=== PATIENT | female | born 1985 | race African-American/Black ===

== ENCOUNTER 2017-03-15 11:51 | Emergency (ER) | payer MEDICAID ==
[2017-03-15] MEDS ORDERED: IBUPROFEN 800 MG TABLET PO ONE (12:52)
[2017-03-15] MEDS ORDERED: PENICILLIN V POTASSIUM 500 MG TABLET PO ONE (12:52)
--- NOTE | 2017-03-15 12:58 | ER Document Report ---
ED ENT - General Chief Complaint: Sore Throat Stated Complaint: SORE THROAT Time Seen by Provider: 03/15/17 12:24 Mode of Arrival: Ambulatory Information source: Patient Notes: 11-year-old female presents to ED for sore throat, jaw pain, and face pain for 2 days TRAVEL OUTSIDE OF THE [place] IN LAST 30 DAYS: No - HPI Onset: Other - 2 days Onset/Duration: Gradual Quality of pain: Sharp, Stabbing Severity: Severe Pain Level: 5 Context: Recent Illness Location of pain: Throat, Tooth Associated symptoms: Dental pain, Dental caries, Runny nose, Sinus pain, Sore throat Similar symptoms previously: Yes Recently seen / treated by doctor: No - Related Data Allergies/Adverse Reactions: No Known Allergies Allergy (Verified 03/15/17 12:00) Past Medical History - General Information source: Patient - Social History Smoking Status: Current Every Day Smoker Cigarette use (# per day): Yes - 1-2 ppd Chew tobacco use (# tins/day): No Smoking Education Provided: Yes - less than 2 min Frequency of alcohol use: None Drug Abuse: None Occupation: no Lives with: Alone Family History: Arthritis, CAD, CVA, DM, Hyperlipidemia, Hypertension, Malignancy, Thyroid Disfunction - Past Medical History Cardiac Medical History: Reports: None Pulmonary Medical History: Reports: None EENT Medical History: Reports: None Neurological Medical History: Reports: None Endocrine Medical History: Reports: None Renal/ Medical History: Reports: None Malignancy Medical History: Reports: None GI Medical History: Reports: Hx Hiatal Hernia Musculoskeltal Medical History: Reports None Skin Medical History: Reports None Psychiatric Medical History: Reports: None Traumatic Medical History: Reports: None Infectious Medical History: Reports: None Past Surgical History: Reports: Hx Section, Hx Dilation and Curettage, Hx Genitourinary Surgery - wedge bx - Immunizations Immunizations up to date: Yes Hx Diphtheria, Pertussis, Tetanus Vaccination: Yes Review of Systems - Review of Systems Constitutional: No symptoms reported EENT: No symptoms reported Cardiovascular: No symptoms reported Respiratory: No symptoms reported Gastrointestinal: No symptoms reported Genitourinary: No symptoms reported Female Genitourinary: No symptoms reported Musculoskeletal: No symptoms reported Skin: No symptoms reported Hematologic/Lymphatic: No symptoms reported Neurological/Psychological: No symptoms reported -: Yes All other systems reviewed and negative Physical Exam - Vital signs Vitals: Temp Pulse Resp BP Pulse Ox 98.7 F 90 20 110/73 98 03/15/17 11:58 03/15/17 11:58 03/15/17 11:58 03/15/17 11:58 03/15/17 11:58 Interpretation: Normal - General General appearance: Appears well, Alert - HEENT Head: Normocephalic, Atraumatic Eyes: Normal Pupils: PERRL Ears: Normal External canal: Normal Tympanic membrane: Normal Sinus: Normal Nasal: Purulent discharge, Swelling Mucous membranes: Normal Teeth diagram: 1 - multiple cavities with gingivitis Pharynx: Erythema, Post nasal drainage. No: Exudate, Peritonsillar abscess, Retropharyngeal abscess, Tonsillar hypertrophy, Uvular edema, Potential airway comprom. - Respiratory Respiratory status: No respiratory distress Chest status: Nontender Breath sounds: Normal Chest palpation: Normal - Cardiovascular Rhythm: Regular Heart sounds: Normal auscultation Murmur: No - Abdominal Inspection: Normal Distension: No distension Bowel sounds: Normal Tenderness: Nontender Organomegaly: No organomegaly - Back Back: Normal, Nontender - Extremities General upper extremity: Normal inspection, Nontender, Normal color, Normal ROM , Normal temperature General lower extremity: Normal inspection, Nontender, Normal color, Normal ROM , Normal temperature, Normal weight bearing. No: Indira's sign - Neurological Neuro grossly intact: Yes Cognition: Normal Orientation: AAOx4 Roel Coma Scale Eye Opening: Spontaneous Roel Coma Scale Verbal: Oriented Landenberg Coma Scale Motor: Obeys Commands Landenberg Coma Scale Total: 15 Speech: Normal Motor strength normal: LUE, RUE, LLE, RLE Sensory: Normal - Psychological Associated symptoms: Normal affect, Normal mood - Skin Skin Temperature: Warm Skin Moisture: Dry Skin Color: Normal Course - Vital Signs Vital signs: Temp Pulse Resp BP Pulse Ox 98.7 F 79 16 114/90 H 100 03/15/17 11:58 03/15/17 14:26 03/15/17 14:26 03/15/17 14:26 03/15/17 14:26 Discharge - Discharge Clinical Impression: Pain due to dental caries URI (upper respiratory infection) Qualifiers: URI type: unspecified URI Qualified Code(s): J06.9 - Acute upper respiratory infection, unspecified Condition: Stable Disposition: HOME, SELF-CARE Instructions: Use of [id number] Ibuprofen ([facility]) Additional Instructions: UPPER RESPIRATORY ILLNESS: You have a viral infection of the respiratory passages -- a "cold." This common infection causes nasal congestion, drainage, and often sore throat and cough. It is highly contagious. The disease usually lasts about 10 to 14 days. There is no "cure" for the viral infection -- it must run its course. If there is a complication, such as bacterial infection in the nose, sinuses, middle ear, or bronchial tubes, antibiotics may be required. The antibiotics won't affect the virus. Drink plenty of fluids. A humidifier may help. An expectorant medication or decongestant may make you more comfortable. Use acetaminophen or ibuprofen for fever or aches. See the doctor if fever persists over two days, if there is any significant worsening of your symptoms, or if you simply fail to improve as expected. SORE THROAT: Sore throats may be caused by viruses, bacteria, or fungi. Most are due to a virus, and must get better on their own. Bacterial sore throats, particularly those due to "strep," need treatment with antibiotics. If an antibiotic is prescribed, be sure to take the medication for a full 10 days. Failure to take the antibiotic can result in complications such as rheumatic fever. Sometimes, an injection of antibiotics is given instead of pills or liquid. This single "shot" is equal in effectiveness to the oral medication. To relieve symptoms, take acetaminophen for pain. Sip clear liquids frequently, or eat popsicles or ice chips. Anesthetic sprays or lozenges may help. Make sure the air in the room is not too dry. Avoid using decongestants or antihistamines. Call the doctor if there is no improvement in two days, or if you have difficulty breathing, increasing throat pain, high fever, rash, or frequent vomiting. TOOTHACHE: Your pain is due to dental decay. The tooth must be repaired in order for you to feel better. You will, therefore, be referred to a dentist. We do not have dentists on the staff at [facility]. Severe swelling or drainage around a tooth usually means a dental abscess. This also requires evaluation and treatment by the dentist, but antibiotics may be prescribed while awaiting dental treatment. You should be rechecked immediately if you develop major swelling of the face, increasing pain, a lump in the jaw or gums, headache, difficulty swallowing, or fever. PENICILLIN V K: You have been given a prescription for Penicillin VK. Your physician has determined that this is the best antibiotic for your condition. Pen VK can be taken with meals, however more of the antibiotic gets into the bloodstream if it's taken on an empty stomach. Penicillin usually has no side effects. However, allergy to penicillins is common. If you have had an allergic reaction to any drug of the penicillin family, you should never take any other penicillin. Notify your doctor at once if you develop hives, itching, swelling, faintness, or shortness of breath. I have given you a syringe of viscous lidocaine to use for your dental pain. You can put about 1 cc of viscous lidocaine on your tooth every 4 hours for the pain. This is lidocaine it will not your tongue and your throat please be careful eating or drinking after using this medication. FOLLOW-UP CARE: You have been referred for follow-up care to the dentists listed below. Call the dentists office for an appointment as you were instructed or within the next two days. If you experience worsening or a significant change in your symptoms, notify the physician immediately or return to the Emergency Department at any time for re-evaluation. [facility] [address], [place] Wednesday mornings, by appointment [facility] [address] [place] [address] [facility] [address] [facility]. [facility] [address] [facility]. [facility] [address] [facility].. [email or web address] [facility] [address] [place] [address] Wednesday- 8:00am to 5:00 pm Will see patients from other [facility]. Charges based on income and family size and accepts Medicare, Medicaid, and Insurances Will pull molars [facility], [facility]. [address] Hours of Operation 8:00 am - 4:30 pm weekdays The following dental offices accept Medicaid: [facility] Dr. Chong Dr. Truong Dr. Luis Dr. Medina Del Morales, Alicia, and Ethel oral surgery Dr. Jiménez ([place]) Dr. Gonzales ([place]) [facility] Drs. Selby ([place]) Dr. Melendez ([place]) [facility] Dr. Rowe ([place]) Drs. Guzmán and ([place]) Medicaid Care Line Prescriptions: Ibuprofen 600 mg PO Q8HP PRN #20 tablet PRN Reason: Penicillin V Potassium [Penicillin Vk 500 mg Tablet] 500 mg PO BID #20 tablet
[2017-03-15] MEDS ORDERED: LIDOCAINE 2% VISCOUS SOLN 20 ML UDCUP PO ONE (14:02)
[2017-03-15 14:28] VITALS: BP 114/90
== END 2017-03-15 14:28 | disposition home or self-care (01) ==
LOC: ER 11:51
DX: J06.9 Acute upper respiratory infection, unspecified (principal); K08.89 Other specified disorders of teeth and supporting structures; J02.9 Acute pharyngitis, unspecified; R68.84 Jaw pain; R51 Headache; F17.210 Nicotine dependence, cigarettes, uncomplicated
CPT/HCPCS: 99283; 87070; 87880; J3490 ×3

== ENCOUNTER 2018-07-13 09:06 | Emergency (ER) | payer SELFPAY ==
[2018-07-13] MEDS ORDERED: ONDANSETRON 4 MG TAB.RAPDIS PO ONE (09:50)
--- NOTE | 2018-07-13 09:51 | ER Document Report ---
ED Medical Screen (RME) - General Chief Complaint: Abdominal Pain Stated Complaint: SWOLLEN GUMS Time Seen by Provider: 07/13/18 09:45 Mode of Arrival: Ambulatory Information source: Patient Notes: Patient presents complaining of dental pain, sore throat as well as abdominal pain. Patient states she has had lower abdominal pain for the past 2 weeks with nausea and vomiting diarrhea. Patient states she is vomited once and had diarrhea once today. Patient does complain of headache and dysuria as well. Patient denies any concerns about . I have greeted and performed a rapid initial assessment of this patient. A comprehensive ED assessment and evaluation of the patient, analysis of test results and completion of the medical decision making process will be conducted by additional ED providers. TRAVEL OUTSIDE OF THE [place] IN LAST 30 DAYS: No - Related Data Allergies/Adverse Reactions: ibuprofen Allergy (Verified 07/13/18 09:07) Past Medical History Renal/ Medical History: Denies: Hx Peritoneal Dialysis GI Medical History: Reports: Hx Hiatal Hernia. Denies: Hx Gastroesophageal Reflux Disease, Hx Ulcer Past Surgical History: Reports: Hx Section, Hx Dilation and Curettage, Hx Genitourinary Surgery - wedge bx - Immunizations Immunizations up to date: Yes Hx Diphtheria, Pertussis, Tetanus Vaccination: Yes Physical Exam - Vital signs Vitals: Temp Pulse Resp BP Pulse Ox 98.5 F 85 18 132/88 H 100 07/13/18 09:10 07/13/18 09:10 07/13/18 09:10 07/13/18 09:10 07/13/18 09:10 - Abdominal Tenderness: Tender - Lower pelvic tenderness Course - Vital Signs Vital signs: Temp Pulse Resp BP Pulse Ox 98.5 F 85 18 132/88 H 100 07/13/18 09:10 07/13/18 09:10 07/13/18 09:10 07/13/18 09:10 07/13/18 09:10
[2018-07-13 11:01] LABS: ABSOLUTE BASOPHILS # (AUTO) 0.1 10^3/uL (0.0-0.2); ABSOLUTE EOSINOPHILS # (AUTO) 0.1 10^3/uL (0.0-0.6); ABSOLUTE LYMPHOCYTES (AUTO) 2.4 10^3/uL (0.5-4.7); ABSOLUTE MONOCYTES (AUTO) 0.4 10^3/uL (0.1-1.4); ABSOLUTE NEUT (AUTO) 6.1 10^3/uL (1.7-8.2); BASOPHILS % (AUTO) 1.4 % (0-2); EOSINOPHILS % (AUTO) 1.2 % (0-6); HEMATOCRIT 37.6 % (36.0-47.0); HEMOGLOBIN 13.1 g/dL (12.0-15.5); LYMPHOCYTES % (AUTO) 26.4 % (13-45); MEAN CORPUSCULAR HEMOGLOBIN 30.6 pg (27.0-33.4); MEAN CORPUSCULAR HGB CONC 34.8 g/dL (32.0-36.0); MEAN CORPUSCULAR VOLUME 88 fl (80-97); PLATELET COUNT 421 10^3/uL (150-450); RED BLOOD COUNT 4.28 10^6/uL (3.72-5.28); RED CELL DISTRIBUTION WIDTH 12.6 % (11.5-14.0); TOTAL CELLS COUNTED % (AUTO) 100 %; WHITE BLOOD COUNT 9.1 10^3/uL (4.0-10.5)
--- NOTE | 2018-07-13 11:53 | ER Document Report ---
ED GI/ - General Chief Complaint: Abdominal Pain Stated Complaint: SWOLLEN GUMS Time Seen by Provider: 07/13/18 09:45 Mode of Arrival: Ambulatory Notes: Patient is an otherwise healthy 33-year-old female who presents to the emergency department today with multiple complaints. Patient's primary complaint is swollen gums and a possible abscess to her right upper jaw line. Patient also reports intermittent abdominal cramping, she states she just started her period this morning and states she has not eaten in a couple of days due to her mouth pain. She denies any fever, nausea, vomiting or diarrhea. She denies any dysuria or abnormal urinary discharge. TRAVEL OUTSIDE OF THE [place] IN LAST 30 DAYS: No - Related Data Allergies/Adverse Reactions: ibuprofen Allergy (Verified 07/13/18 09:07) Past Medical History - General Information source: Patient - Social History Smoking Status: Current Every Day Smoker Chew tobacco use (# tins/day): No Frequency of alcohol use: None Drug Abuse: None Family History: Arthritis, CAD, CVA, DM, Hyperlipidemia, Hypertension, Malignancy, Thyroid Disfunction Patient has suicidal ideation: No Patient has homicidal ideation: No - Medical History Medical History: Negative Renal/ Medical History: Denies: Hx Peritoneal Dialysis GI Medical History: Reports: Hx Hiatal Hernia. Denies: Hx Gastroesophageal Reflux Disease, Hx Ulcer Past Surgical History: Reports: Hx Section, Hx Dilation and Curettage, Hx Genitourinary Surgery - wedge bx - Immunizations Immunizations up to date: Yes Hx Diphtheria, Pertussis, Tetanus Vaccination: Yes Review of Systems - Review of Systems EENT: Mouth pain, Dental problem Gastrointestinal: Abdominal pain. denies: Diarrhea, Nausea, Vomiting Physical Exam - Vital signs Vitals: Temp Pulse Resp BP Pulse Ox 98.5 F 85 18 132/88 H 100 07/13/18 09:10 07/13/18 09:10 07/13/18 09:10 07/13/18 09:10 07/13/18 09:10 - Notes Notes: PHYSICAL EXAMINATION: GENERAL: Well-appearing, well-nourished and in no acute distress. HEAD: Atraumatic, normocephalic. EYES: Pupils equal round extraocular movements intact, conjunctiva are normal. ENT: Nares patent, area of induration and fluctuance noted to right upper gumline. NECK: Normal range of motion LUNGS: No respiratory distress Abdomen: Abdomen soft, nontender, no guarding, no rebound. Musculoskeletal: Normal range of motion NEUROLOGICAL: Normal speech, normal gait. PSYCH: Normal mood, normal affect. SKIN: Warm, Dry, normal turgor, no rashes or lesions noted. Course - Re-evaluation Re-evalutation: CBC and CMP are unremarkable. Multiple attempts were made by nursing staff to obtain urinalysis from patient. Patient not cooperating with this. Patient sitting in the room eating Portuguese food. Patient really reports that she would just like to take a nap before she get this is a urine sample. I did speak with the patient and the patient tells me that her abdominal pain has resolved now that she has eaten something and she has absolutely no urinary symptoms whatsoever. Abscess to patient's right upper gumline will be drained and patient will be discharged home. - Vital Signs Vital signs: Temp Pulse Resp BP Pulse Ox 98.6 F 83 16 118/78 100 07/13/18 14:00 07/13/18 14:00 07/13/18 14:00 07/13/18 14:00 07/13/18 14:00 - Laboratory Result Diagrams: 07/13/18 10:26 07/13/18 11:30 Procedures - Incision and Drainage Right upper gumline Type: Simple Incision Method: Incision made with needle Discharge - Discharge Clinical Impression: Dental abscess Abdominal pain Qualifiers: Abdominal location: generalized Qualified Code(s): R10.84 - Generalized abdominal pain Condition: Stable Disposition: HOME, SELF-CARE Additional Instructions: Abdominal Pain There are many causes of abdominal pain. Pain can mean a serious problem requiring surgery (such as appendicitis). It can also be an innocent problem that goes away on its own (such as a viral infection). Often, time must pass to determine the cause of pain. The physician does not feel that hospitalization is necessary, at present. Things may change within the next 24 hours. Call the doctor or come back for re- examination if any problems occur, such as: (1) Pain that becomes more severe, steady, or becomes concentrated in one specific area. Also, pain that is more severe with movement or coughing. (2) Vomiting that persists or becomes more frequent. (3) Blood in the vomitus, urine, or bowel movements. Blood in the stool may have a tarry or black appearance. (4) Shaking chills or fever greater than 100 degrees F. (5) The abdomen becomes more distended or swollen. (6) Bowel movements cease. (7) Failure to improve as expected. Dental Infection or Abscess You have an infection, perhaps an abscess (pus formation) of the gum around one of your teeth, which is probably decayed. If there is an abscess, it may drain on its own or it may need to be opened or lanced. Severe swelling or drainage around a tooth usually means a deep dental abscess which usually requires evaluation and treatment by a dentist or oral surgeon. Antibiotics may be prescribed while awaiting dental treatment. If you develop high fever with chills, worsening pain, or increasing swelling in the area, see a dentist or oral surgeon immediately or return to the Emergency Department immediately. Please take antibiotics as prescribed, finish the entire course even if your dental pain goes away. You may take acetaminophen [id number] for pain. Use the Bentyl as prescribed for abdominal cramping. Return to the emergency department for any of the life-threatening symptoms as outlined above. As we discussed please follow-up with your dentist. Prescriptions: Dicyclomine HCl [Bentyl 20 mg Tablet] 20 mg PO QID #20 tablet Lidocaine HCl [Xylocaine 2% Viscous Soln 20 ml Udcup] 2 ml MM Q2H PRN #1 udc PRN Reason: for pain Penicillin V Potassium [Penicillin Vk 500 mg Tablet] 500 mg PO BID #20 tablet Forms: Return to Work
[2018-07-13 12:19] LABS: ALANINE AMINOTRANSFERASE 35 U/L (9-52); ALBUMIN 4.5 g/dL (3.5-5.0); ALKALINE PHOSPHATASE 72 U/L (38-126); ANION GAP 15 (5-19); ASPARTATE AMINO TRANSFERASE 30 U/L (14-36); BILIRUBIN,DIRECT 0.3 mg/dL (0.0-0.4); BILIRUBIN,TOTAL 0.5 mg/dL (0.2-1.3); BLOOD UREA NITROGEN 12 mg/dL (7-20); CALCIUM 9.4 mg/dL (8.4-10.2); CARBON DIOXIDE 26 mmol/L (22-30); CHLORIDE 102 mmol/L (98-107); GLUCOSE 81 mg/dL (75-110); POTASSIUM 4.2 mmol/L (3.6-5.0); SODIUM 142.7 mmol/L (137-145); TOTAL PROTEIN 8.2 g/dL (6.3-8.2)
[2018-07-13] MEDS ORDERED: HYDROCODONE/ACETAMINOPHEN 5-325 MG TABLET PO ONE (12:25)
[2018-07-13 14:49] VITALS: BP 118/78
== END 2018-07-13 14:00 | disposition home or self-care (01) ==
LOC: ER 09:06
DX: K04.7 Periapical abscess without sinus (principal); R10.84 Generalized abdominal pain; F17.200 Nicotine dependence, unspecified, uncomplicated; Z88.6 Allergy status to analgesic agent
CPT/HCPCS: 36415; 80053; 84703; 85025; 87070; 87880; 99284

== ENCOUNTER → 2020-06-17 | Outpatient (CLI) | payer MEDICAID ==
--- NOTE | 2020-06-17 15:55 | RADIOLOGY REPORT (SQ) ---
EXAM DESCRIPTION: U/S OB 14+ TRNABD 1GES W/O DOP IMAGES COMPLETED DATE/TIME: 06/17/2020 3:41 pm REASON FOR STUDY: Z34.82 ENCOUNTER FOR SUPRVSN OF NORMAL , SECOND TRIMESTER Z34.82 ENCOUNT ER FOR SUPRVSN OF NORMAL , SECOND TRI COMPARISON: None. TECHNIQUE: Static and Dynamic grayscale imaging performed of gravid uterus using transabdominal appr oach. Additional selected color Doppler and spectral images recorded. All stored on PACS. LIMITATIONS: None. FINDINGS: FETUSES SEEN:1 EGA: 17 weeks 3 days Calculated using BPD,FL,HC,AC documented on images. No discrepancy with clinica l dates. EDWIGE: 11/22/2020 EFW: 180 grams PERCENTILE: Not applicable. Fetus less than or equal to 20 weeks gestation. CRISTA: LVP-3 x 4.0 cm PLACENTA: Posterior PRESENTATION: Breech ANATOMY: HEART RATE: 152 beats per minute. FOUR CHAMBER HEART: Visualized. THREE VESSEL CORD: Yes. CORD INSERTION: Visualized. KIDNEYS AND BLADDER: Visualized. Appear normal. STOMACH: Visualized. Appears normal. SPINE: Normal as visualized. BRAIN AND LATERAL VENTRICLES: Visualized. Appear normal. OTHER: No other significant finding. MATERNAL ADNEXA: Maternal ovaries not visualized. CERVICAL LENGTH: 2.0 cm Closed. OTHER: No other significant finding. IMPRESSION: LIVING INTRAUTERINE . ESTIMATED GESTATIONAL AGE: 17 weeks 3 days NO VISUALIZED ANOMALIES. Trimester of : Second trimester - 13 weeks 1 day to 27 weeks 6 days. TECHNICAL DOCUMENTATION: JOB ID: [id number] 2010 [employer]- All Rights Reserved Reading location - IP/workstation name: [email or web address]
== END ==
LOC: RAD 14:47
PROVIDERS: ATTEND Midwife
DX: Z34.82 Encounter for supervision of other normal pregnancy, second trimester (principal); Z3A.17 17 weeks gestation of pregnancy
CPT/HCPCS: 76805